=== PATIENT | male | born 1975 | race Two or more races ===

== ENCOUNTER 2023-05-09 20:31 | Emergency (ER) | payer OTHER ==
[2023-05-09 20:42] VITALS: BP 150/90; O2SAT 96
[2023-05-09] MEDS: lidocaine 1% 20 ML MDV SUBQ ONE (20:55)
--- NOTE | 2023-05-09 21:10 | ED Physician Documentation ---
PD HPI UPPER EXT INJURY - Stated complaint Stated Complaint: SPLINTER IN R HAND - Chief complaint Chief Complaint: Wound - History obtained from History obtained from: Patient, Family - History of Present Illness Location: Right, Hand Type of injury: Puncture wound - Additonal information Additional information: Patient is a [place] Citizen-speaking gentleman who presents with his brother today after getting a splinter in his left hand at work today. He was working with wood and a splinter entered the hand at the base of the middle finger and he feels as though there is a foreign body between the middle finger and the ring finger. He has not up-to-date on his tetanus. Denies any other injuries today. History provided by brother who is [place] speaking and translated for patient. A [place] Citizen video risk assessment consultant was offered to the patient but he declined with a preference to have his brother translate for him. PD PAST MEDICAL HISTORY - Past Medical History Past Medical History: No - Past Surgical History Past Surgical History: No - Allergies Allergies/Adverse Reactions: Allergies Allergy/AdvReac Type Severity Reaction Status Date / Time No Known Drug Allergies Allergy Verified 05/09/23 20:36 - Social History Does the pt smoke?: No Smoking Status: Never smoker Does the pt drink ETOH?: No Does the pt have substance abuse?: No - POLST Patient has POLST: No PD ED PE NORMAL - Vitals Vital signs reviewed: Yes - General General: Alert and oriented X 3, No acute distress, Well developed/nourished - Derm Derm: Normal color, Warm and dry, Other (There is a small puncture wound base of RT long finger volar surface and a palpable foreign body in between the long and middle fingers. No erythema no swelling no purulent drainage.) - Extremities Extremities: No deformity, No tenderness to palpate, Normal ROM s pain Results - Vitals Vitals: Vital Signs - 24 hr 05/09/23 20:36 Temperature 36.5 C Heart Rate 65 Respiratory 16 Rate Blood Pressure 150/90 H O2 Saturation 96 Oxygen O2 Source Room air Procedures - FB removal FB location: Subcutaneous FB removal preparation: Local anesthesia-specify Removal method: Incision FB removal aftercare: No complications, Patient tolerated well, Removed successfully PD Medical Decision Making - ED course Complexity details: d/w patient, d/w family ED course: 47-year-old male presenting with a splinter in his right hand As described in HPI. I attempted to remove it with tweezers however was unsuccessful. I discussed with patient whether or not he wanted to have me attempt removal after local anesthesia and a small puncture to remove the palpable foreign body. He did agree to this verbally after risk versus benefits discussed. I cleaned the area with Povidine and alcohol and anesthetized locally with 1 mL of 1% plain lidocaine. I then made a small 3 mm incision at the site of the palpable foreign body and I was able to then used tweezers and remove approximately 4 mm wood splinter. I did not not palpate any additional foreign body. The patient tolerated the procedure very well, the site was cleaned and Band-Aids were applied to the incision site and puncture site. Patient was given updated Tdap here today and advised of home wound care instructions as well as return precautions if any signs of infection. This was a work-related injury and patient's brother is completing the L&I paperwork Departure - Departure Disposition: 01 Home, Self Care Clinical Impression: Foreign body entering through skin Qualifiers: Encounter type: initial encounter Qualified Code(s): W45.8XXA - Other foreign body or object entering through skin, initial encounter Condition: Good Instructions: ED Foreign Body Splinter Removal Comments: Keep hands clean/dry and monitor site for infection. Splinter removed. Tetanus vaccine updated. Forms: PCP List
[2023-05-09] MEDS: TETANUS/DIPHTHERIA/PERTUSSIS 0.5 ML SYRINGE IM ONE (21:15)
== END 2023-05-09 21:25 | disposition home or self-care (01) ==
LOC: ED 20:31
DX: S60.552A Superficial foreign body of left hand, initial encounter (principal); W45.8XXA Other foreign body or object entering through skin, initial encounter; Y99.0 Civilian activity done for income or pay; Z23 Encounter for immunization
CPT/HCPCS: 10120; 1040M; 90471

== ENCOUNTER 2023-06-14 14:01 | Emergency (ER) | payer OTHER ==
[2023-06-14] MEDS ORDERED: BUFFERED LIDOCAINE 10 ML SYRINGE SUBQ STA (15:59)
--- NOTE | 2023-06-14 16:00 | ED Physician Documentation ---
PD HPI UPPER EXT INJURY - Stated complaint Stated Complaint: RT HAND PX - Chief complaint Chief Complaint: Ext Problem - History obtained from History obtained from: Patient - Additonal information Additional information: 47-year-old male presents for right hand pain and swelling. Patient states that he had a splinter 1 month prior that he thinks was incompletely removed. Approximately 2 weeks ago he noticed pain and swelling in between his fingers where the splinter was and is concerned there may be a retained splinter fragment. 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 Still able to move all fingers and his hand without difficulty. Review of Systems Constitutional: denies: Fever, Chills Cardiac: denies: Chest pain / pressure, Palpitations, Calf pain Respiratory: denies: Dyspnea, Cough, Wheezing GI: denies: Abdominal Pain, Nausea, Vomiting, Constipation, Diarrhea Musculoskeletal: reports: Extremity pain (R hand) Neurologic: denies: Generalized weakness, Focal weakness, Numbness, Difficulty speaking PD PAST MEDICAL HISTORY - Past Surgical History Past Surgical History: No - Present Medications Home Medications: Ambulatory Orders Medication Instructions Recorded Confirmed cephALEXin [Keflex] 500 mg PO Q6H #28 cap 06/14/23 - Allergies Allergies/Adverse Reactions: Allergies Allergy/AdvReac Type Severity Reaction Status Date / Time No Known Drug Allergies Allergy Verified 05/09/23 20:36 - Social History Does the pt smoke?: No Smoking Status: Never smoker Does the pt drink ETOH?: No Does the pt have substance abuse?: No - POLST Patient has POLST: No PD ED PE NORMAL - Neck Neck: Supple, no meningeal sign - Cardiac Cardiac: RRR, Strong equal pulses - Respiratory Respiratory: No respiratory distress, Clear bilaterally - Abdomen Abdomen: Soft, Non tender, Non distended - Derm Derm: Normal color, Warm and dry, Other (small area of fluctuance between 2nd and 3rd finger webbing) - Extremities Extremities: No deformity, Normal ROM s pain - Neuro Neuro: Alert and oriented X 3, 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 Since this was a wood fragment x-ray would be of little utility. I attempted to perform bedside ultrasound, I did not identify any obvious foreign body, however a pocket of fluid did seem to be between the finger webs. Incision and drainage performed at bedside, I was able to express a small amount of purulent material from the webbing between the patient's fingers. Pocket was irrigated copiously with normal saline and dressed with clean bandage. Patient discharged on antibiotics. Strict ED return precautions discussed at bedside. Departure - Departure Disposition: 01 Home, Self Care Clinical Impression: Abscess Condition: Stable Instructions: ED Abscess IandD Prescriptions: cephALEXin [Keflex] 500 mg PO Q6H #28 cap Comments: Puede wilmar tylenol y ibuprofena por dolor cada 6-8 horas. Si tenga mas dolor, la mano raman hinchada, o algun problema por favor regrese a la bekah de emergencia. Forms: PCP List Discharge Date/Time: 06/14/23 16:38
[2023-06-14 16:40] VITALS: BP 143/86; O2SAT 98
== END 2023-06-14 16:38 | disposition home or self-care (01) ==
LOC: ED 14:01
DX: L02.511 Cutaneous abscess of right hand (principal)
CPT/HCPCS: 26010; 99283

== ENCOUNTER 2023-06-28 11:09 | Emergency (ER) | payer OTHER ==
--- NOTE | 2023-06-28 14:47 | ED Physician Documentation ---
PD HPI SKIN - Stated complaint Stated Complaint: RT HAND PX - Chief complaint Chief Complaint: Wound - History obtained from History obtained from: Patient - Additional information Additional information: 47-year-old macedonian speaking male presents to the emergency department for third visit after concerns of retained splinter in his right hand. 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 A small incision was made in between the ring and middle finger and about a 4 mm wood splinter was removed from the area of concern retained splinter. He was discharged home at that time and given strict return precautions. Patient presented back to the emergency department on 06/14 for concerns of ongoing contained splinter at that time he appeared to have an abscess bedside ultrasound was complete there was no obvious foreign body incision and drainage was performed at bedside and able to express a small amount of purulent discharge in between patient's ring and middle finger. He was started on Keflex and was again given strict return precautions. 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 that his hand is still hurting there is ongoing swelling and redness to that same area PD PAST MEDICAL HISTORY - Past Medical History Past Medical History: Yes Cardiovascular: None Endocrine/Autoimmune: None - Past Surgical History Past Surgical History: Yes - Present Medications Home Medications: Ambulatory Orders Medication Instructions Recorded Confirmed cephALEXin [Keflex] 500 mg PO Q6H #28 cap 06/14/23 - Allergies Allergies/Adverse Reactions: Allergies Allergy/AdvReac Type Severity Reaction Status Date / Time No Known Drug Allergies Allergy Verified 06/28/23 11:21 - Social History Does the pt smoke?: No Smoking Status: Never smoker Does the pt drink ETOH?: No Does the pt have substance abuse?: No - Immunizations Immunizations are current?: Yes - POLST Patient has POLST: No PD ED PE NORMAL - Vitals Vital signs reviewed: Yes - General General: Alert and oriented X 3 - Derm Derm: Other (Erythema and what appears to be abscess in between patient's right hand middle and ring finger webbing. No drainage no weeping or oozing.) - Extremities Extremities: Other (Full range of motion to right hand including flexion and extension of all 5 fingers and wrist.No tendon sheath tenderness) - Psych Psych: Normal mood Results - Vitals Vitals: Vital Signs - 24 hr 06/28/23 06/28/23 11:15 16:16 Temperature 35.7 C L Heart Rate 75 81 Respiratory 16 17 Rate Blood Pressure 126/76 139/83 H O2 Saturation 98 97 Oxygen O2 Source Room air - Rads (name of study) Right hand x-ray Relevant Findings:: Prelim report reviewed, EMP independent interpretation of test ( No obvious foreign body visualized) Procedures - FB removal FB location: Subcutaneous FB removal preparation: Local anesthesia-specify Removal method: Foreceps, Incision FB removal aftercare: No complications, Patient tolerated well, Removed successfully PD Medical Decision Making - ED course ED course: 47-year-old male third visit to the emergency department for concerns of retained foreign body into his right hand between middle and ring finger. Patient reports that he completed full course of antibiotics but continues to endorse an ongoing pain and inflammation to where he endorses a sliver was. About 1/2 cm incision was made over the abscess and forceps were used open and no loculated any fluid pockets. Moderate to large amount of purulent drainage was removed from the abscess with ongoing massage and manipulation a very large sliver almost 2 and half centimeters in length was expelled from the patient's hand. All fluid collection was loculated with forceps. Wound was irrigated with normal saline. Patient reports that he had significant alleviation of relief after sliver was removed. No need to start patient on antibiotics as I am almost confident that all foreign body was removed with this visit. Patient was told to follow-up with primary care provider about ER visit and given return precautions when to come back to the ER and signs and symptoms of infection to watch out for. Patient was grateful for sliver to be fully removed safe for discharge at this time. Departure - Departure Disposition: 01 Home, Self Care Clinical Impression: Foreign body hand Qualifiers: Encounter type: sequela Laterality: right Qualified Code(s): S60.551S - Superficial foreign body of right hand, sequela Condition: Good Instructions: ED Foreign Body Splinter Removal Comments: Thank you for trusting us with your care I removed a very large sliver/splinter from your right hand. Continue to do warm compresses and massages to the right hand if any possible further infection is remaining. You can apply Neosporin or antibiotic ointment to the open wound and continue to do gentle massaging to the hand and keep it covered with a Band-Aid. Make sure that you are clipping the open wound very clean to prevent against any further infection. Please come back to the emergency department if you have any worsening signs or symptoms of infection. Because we were able to remove the entire foreign body there is no need for additional antibiotics at this time. Forms: PCP List Discharge Date/Time: 06/28/23 16:16
--- NOTE | 2023-06-28 15:21 | XRAY Report ---
PROCEDURE: Hand 1-2V RT INDICATIONS: possible retained foreign body TECHNIQUE: 2 views of the hand(s) acquired. COMPARISON: None. FINDINGS: Bones: No fractures or dislocations. No suspicious bony lesions. Soft tissues: Mild soft tissue gas can be seen along the interspace between the third and fourth fin gers. No radiopaque foreign bodies are seen. IMPRESSION: Mild soft tissue gas, without a radiopaque foreign body. No bony abnormality can be seen on this study. Reviewed by: John Escobar MD on 06/28/2023 2:20 PM [facility] Approved by: John Escobar MD on 06/28/2023 2:20 PM [facility] Station ID: [id number]
[2023-06-28] MEDS ORDERED: LIDOCAINE 1%-EPI 1:100000 20 ML MDV SUBQ ONE (16:00)
[2023-06-28 16:23] VITALS: BP 139/83; O2SAT 97
== END 2023-06-28 16:16 | disposition home or self-care (01) ==
LOC: ED 11:09
DX: S60.551A Superficial foreign body of right hand, initial encounter (principal); W45.8XXA Other foreign body or object entering through skin, initial encounter; Y92.69 Other specified industrial and construction area as the place of occurrence of the external cause; Y99.0 Civilian activity done for income or pay
CPT/HCPCS: 10120; 99283